=== PATIENT | male | born 1990 | race Caucasian/White ===

== ENCOUNTER 2021-04-22 10:23 | Emergency (ER) | payer SELFPAY ==
--- NOTE | 2021-04-22 10:34 | ED.WOUNDLAC ---
HPI - Wound/Laceration General Chief Complaint: Wound/Laceration Stated Complaint: Cut lip Time Seen by Provider: 04/22/21 10:34 Source: patient and RN notes reviewed Mode of arrival: ambulatory Limitations: no limitations History of Present Illness HPI narrative: Tru is a 30-year-old female patient who ambulated into the [facility]. Patient states he fell on the stairs and landed and bit through his lip. Patient states he has a small laceration inside his mouth and one across his lower lip. Patient states he is unsure on his tetanus status. Bleeding is controlled. Patient states the incident occurred about 1 hour ago. Related Data Allergies Allergy/AdvReac Type Severity Reaction Status Date / Time No Known Allergies Allergy Verified 04/22/21 10:38 Review of Systems Review of Systems: CONSTITUTIONAL: Denies body aches, fever, chills, or sweats. EYES: Denies visual changes, redness, or discharge. ENT: Denies rhinorrhea, congestion, sore throat, or otalgia. CARDIOVASCULAR: Denies chest pain, palpitations, or edema. RESPIRATORY: Denies cough or dyspnea. GASTROINTESTINAL: Denies abdominal pain, nausea, vomiting, or diarrhea. GENITOURINARY: Denies dysuria or hematuria. SKIN: Denies rash, itching,. + lip laceration MUSCULOSKELETAL: Denies back pain, joint pain, or myalgia. NEUROLOGIC: Denies headache, numbness, tingling, or weakness. PSYCH: Denies depression or anxiety. All systems reviewed & are unremarkable except as noted in HPI and below PMFSH Comments At time of signature, I have reviewed and agree with nursing past medical, surgical, social and family history unless otherwise noted. Please see nursing chart for further information. There is no relevant family history pertinent to the presenting complaint Exam Narrative: GENERAL: Well-appearing, well-nourished, and in no acute distress. HEAD: Normocephalic, atraumatic. EYES: EOMI. No redness or drainage. Conjunctivae normal. ENT: Mucous membranes pink and moist. Nares clear. No rhinorrhea. TMs normal bilaterally. Throat normal. Uvula midline. NECK: Normal AROM. Supple. No lymphadenopathy. CHEST: No respiratory distress. Clear to auscultation. HEART: Regular rate and rhythm. No murmur appreciated. Normal peripheral pulses. ABDOMEN: Soft, nontender, nondistended, normal active bowel sounds. MUSCULOSKELETAL: No bony tenderness. EXTREMITIES: Normal range of motion. No edema. SKIN: Warm, dry, no rash. Capillary refill normal. Normal skin turgor. 1.5 cm laceration to lower lip, 1cm superficial laceration to inner lower lip NEURO: No focal deficits. Alert and oriented x3. Gait steady. PSYCH: Normal affect. No signs of depression or anxiety. Course Vital Signs Vital signs: Vital Signs Temperature 36.2 C L 04/22/21 10:35 Pulse Rate 57 L 04/22/21 10:35 Respiratory Rate 16 04/22/21 10:35 Blood Pressure 136/87 04/22/21 10:35 Pulse Oximetry 99 04/22/21 10:35 Temperature 36.2 C L 04/22/21 10:35 Pulse Rate 57 L 04/22/21 10:35 Respiratory Rate 16 04/22/21 10:35 Blood Pressure 136/87 04/22/21 10:35 Pulse Oximetry 99 04/22/21 10:35 Reviewed. Pt has been instructed to follow up with his PCP regarding his elevated blood pressure today. Procedures Laceration Laceration 1: Date: 04/22/21 Time: 11:05 Site: lip Size (cm): 1.5 Description: irregular Depth: simple, single layer Local Anesthetic: lidocaine 1% Amount of anesthesia used (mL): 3 ====== Skin Level ====== Number of sutures: 3 Technique: simple, interrupted ====== Subcutaneous Layer ====== ====== Muscle Layer ====== ====== Tendon Layer ====== MDM - Wound/Laceration MDM Narrative Medical decision making narrative: Laceration repair was performed to the right lower lip approximately 1.5 cm laceration. 3 sutures were placed. Patient was instructed to have the sutures removed in 5 d
[2021-04-22 10:35] VITALS: BP 136/87; PULSE 57; RESP 16; TEMP 36.2; O2SAT 99
== END 2021-04-22 11:24 | disposition home or self-care (01) ==
PROVIDERS: Emergency Provider Nurse Practitioner Family
DX: S01.511A Laceration without foreign body of lip, initial encounter (principal); W10.9XXA Fall (on) (from) unspecified stairs and steps, initial encounter
CPT/HCPCS: 12011; 99213; G0463

== ENCOUNTER 2022-11-15 04:29 | Emergency (ER) | payer OTHER, SELFPAY ==
[2022-11-15 04:36] VITALS: BP 141/96; PULSE 84; RESP 16; TEMP 36.8; O2SAT 97
--- NOTE | 2022-11-15 04:49 | ED.DENTAL ---
HPI - Dental/Oral General Chief complaint: Dental/Oral Stated complaint: upper tooth and jaw pain Time Seen by Provider: 11/15/22 04:43 History of Present Illness HPI Narrative: 32-year-old male presenting with right upper tooth pain. He smokes weed earlier and felt it worsen, he feels like his cheek is also swollen. Related Data Allergies Allergy/AdvReac Type Severity Reaction Status Date / Time No Known Allergies Allergy Verified 11/15/22 04:30 Review of Systems Review of Systems: CONST: No fever. HEENT: Toothache Exam Narrative: EXAMINATION OF ORGAN SYSTEMS/BODY AREAS: Constitutional: Vital signs per nursing GENERAL:[No acute distress, non-toxic appearing.] HEAD: Normal with no signs of head trauma. EYES: EOMI, conjunctiva normal ENT: Fracture to right upper premolar; very minimal maxillary swelling LUNGS: Nonlabored breathing. HEART: [Regular rate and rhythm] EXT: Normal range of motion SKIN: [No rashes or lesions.] NEURO: [Alert and oriented x 3. No gross focal sensory or strength deficits.] PSYCH: Normal affect Course Vital Signs Vital signs: Vital Signs Temperature 98.3 F 11/15/22 04:36 Pulse Rate 84 11/15/22 04:36 Respiratory Rate 16 11/15/22 04:36 Blood Pressure 141/96 H 11/15/22 04:36 Pulse Oximetry 97 11/15/22 04:36 Oxygen Delivery Room Air 11/15/22 04:36 Temperature 98.3 F 11/15/22 04:36 Pulse Rate 84 11/15/22 04:36 Respiratory Rate 16 11/15/22 04:36 Blood Pressure 141/96 H 11/15/22 04:36 Pulse Oximetry 97 11/15/22 04:36 Oxygen Delivery Room Air 11/15/22 04:36 MDM - Dental/Oral MDM Narrative Medical decision making narrative: ED COURSE AND MEDICAL DECISION MAKING: Patient with worsening dental pain and dental decay. No palpable abscess. No systemic signs or symptoms. Analgesics are administered. Patient declined dental block. Follow-up instructions given for dental/oral surgery clinics. Patient was given return precautions and discharged home in stable condition. Discharge Plan Discharge Clinical Impression: Fracture of tooth Patient Disposition: Home, Self-Care Condition: Stable Instructions: Antibiotic Form, Acute Dental Trauma (ED), Toothache (ED) Additional Instructions: Please follow up with the dentist; you can always return for any further issues. Prescriptions: New amoxicillin 500 mg capsule 500 mg PO Q8H 7 Days Qty: 21 0RF ibuprofen 600 mg tablet 600 mg PO TID PRN (Reason: fever or pain) Qty: 30 0RF No Action amoxicillin-pot clavulanate [Augmentin] 875-125 mg tablet 1 tablet PO Q12H 10 Days Qty: 20 0RF Follow-up/Referrals: PHYSICIAN,[employer] EXAMINER [Primary Care Provider] -
[2022-11-15] MEDS: KETOROLAC 30 MG/ML VIAL (*BKC) IM (05:13)
== END 2022-11-15 05:28 | disposition home or self-care (01) ==
LOC: ANHED 04:50
PROVIDERS: Emergency Provider Emergency Medicine
DX: K03.81 Cracked tooth (principal)
CPT/HCPCS: 96372; 99283; J1885